=== PATIENT | male | born 1980 | race Caucasian/White ===

== ENCOUNTER 2016-05-26 21:35 | Emergency (ER) | payer BC, OTHER ==
[2016-05-26 21:59] VITALS: BP 146/100; PULSE 86; TEMP 98; BMI 27.8
--- NOTE | 2016-05-26 22:54 | PDOC ---
History of Present Illness - General Chief Complaint: Injury Stated Complaint: ANKLE AND KNEE INJURY Time Seen by Provider: 05/26/16 22:13 - History of Present Illness Initial Comments: 05/26/16 22:53 CHIEF COMPLAINT: Pain to left ankle, right knee, right thumb HISTORY OF PRESENT ILLNESS: 35-year-old male with no past medical history presents to ED with pain to left ankle, right knee, and right thumb, after trauma while playing basketball. Patient states that he was going up for a layup when a another player ran into him on the side. Patient states that when he landed he landed on the other player's foot and Twisted my ankle. "Patient states "I'm not really sure how pin but I guess he kept coming into me and I heard a pop in my right knee and was not able to walk after that. "Patient also states that he somehow has a lot of pain to his right thumb. No recent travel or sick contacts. PAST MEDICAL HISTORY: Denies past medical history FAMILY HISTORY: Denies SOCIAL HISTORY: Denies tobacco, alcohol, illicit drug use. SURGICAL HISTORY: Denies ALLERGIES: No known drug allergies REVIEW OF SYSTEMS General/Constitutional: Denies fever or chills. Denies weakness, weight change. HEENT: Denies change in vision. Denies ear pain or discharge. Denies sore throat. Cardiovascular: Denies chest pain or shortness of breath. Respiratory: Denies cough, wheezing, or hemoptysis. Gastrointestinal: Denies nausea, vomiting, diarrhea or constipation. Denies rectal bleeding. Genitourinary: Denies dysuria, frequency, or change in urination. Musculoskeletal: Pain to R knee, left ankle, right thumb. Skin and breasts: Denies rash or easy bruising. PHYSICAL EXAM General Appearance: Well-appearing, appropriately dressed. No apparent distress , no intoxication. HEENT: EOMI, PERRLA, normal ENT inspection, normal voice, TMs normal, pharynx normal. No conjunctival pallor. No photophobia, scleral icterus. Neck: Supple. Trachea midline. No tenderness, rigidity, carotid bruit, stridor , lymphadenopathy, or thyromegaly. Respiratory/Chest: Lungs CTAB. No shortness of breath, chest tenderness, respiratory distress, accessory muscle use. No crackles, rales, rhonchi, stridor , wheezing, dullness Cardiovascular: RRR. S1, S2. No JVD, murmur, bradycardia, tachycardia. Vascular Pulses: Dorsalis-Pedis (R): 2+, Dorsalis-Pedis (L): 2+ Gastrointestinal/Abdominal: Normal bowel sounds. Abdomen soft, non-distended. No tenderness or rebound tenderness. No organomegaly, pulsatile mass, guarding , hernia, hepatomegaly, splenomegaly. Lymphatic: No adenopathy, tenderness. Musculoskeletal/Extremities: Full ROM to left ankle. Limited ROM to R knee secondary to pain, patient unable to bear weight on knee. Pain to proximal aspect of R thumb on palpation, full ROM to thumb and all other figners. Normal inspection. FROM of all extremities, normal capillary refill. Pelvis Stable. No CVA tenderness. No tenderness to extremities, pedal edema, swelling, erythema or deformity. Integumentary: Appropriate color, dry, warm. No cyanosis, erythema, jaundice or rash Neurologic: [employer] II-XII intact. Fully oriented, alert. Appropriate mood/affect. Motor strength 5/5. No appreciable EOM palsy, facial droop or sensory deficit. Past History - Past Medical History Allergies/Adverse Reactions: Allergies Allergy/AdvReac Type Severity Reaction Status Date / Time No Known Allergies Allergy Verified 05/26/16 21:55 Home Medications: Ambulatory Orders NK [No Known Home Medication] 09/12/13 Anemia: No Asthma: No Cancer: No Cardiac Disorders: No CVA: No COPD: No CHF: No DVT: No Dementia: No Diabetes: No Dialysis: No GI Disorders: No Disorders: No HTN: No Hypercholesterolemia: No HIV: No Kidney Stones: No Liver Disease: No - Psycho/Social/Smoking Cessation Hx Anxiety: No Suicidal Ideation: No Smoking History: Never smoked Have you smoked in the past 12 months: No Number of Cigarettes Smoked Daily: 0 Hx Alcohol Use: No Drug/Substance Use Hx: No Substance Use Type: None Trauma Specific PMHX - Complaint Specific PMHX Back Injury: No Neck Injury: No *Physical Exam - Vital Signs Last Vital Signs Temp Pulse Resp BP Pulse Ox 98 F 86 18 146/100 98 05/26/16 21:56 05/26/16 21:56 05/26/16 21:56 05/26/16 21:56 05/26/16 21:56 ED Treatment Course - RADIOLOGY Radiology Studies Ordered: Category Date Time Status ANKLE-LEFT [RAD] Stat Radiology 05/26/16 22:17 Completed FINGER(S) RIGHT [RAD] Stat Radiology 05/26/16 22:21 Completed KNEE 3 POS-RIGHT [RAD] Stat Radiology 05/26/16 22:36 Taken Medical Decision Making - Medical Decision Making 05/26/16 22:59 35 yo M with no PMH presents to fast track with pain to left ankle, right knee, and right thumb s/p injury while playing basketball. -Right thumb x-ray -Right knee x-ray -Left ankle x-ray Right knee x-ray wet read negative for fracture or dislocation. Left ankle x-ray negative for fracture or dislocation. Read by Shayan Shrestha MD. Right thumb x-ray suspicious for nondisplaced fracture at distal shaft of first metacarpal bone with regional soft tissue swelling. Read by Shayan Shrestha MD. -Jan bandage wrap of right knee and left ankle -knee immobilizer to right knee -splint thumb for immoblization -Patient refused pain medication. Advised patient to follow up with orthopedics tomorrow for possible MRI of R knee. Patient verbalized understanding and agrees to plan. *DC/Admit/Observation/Transfer Diagnosis at time of Disposition: Finger fracture, right Left ankle sprain Qualifiers: Encounter type: subsequent encounter Involved ligament of ankle: unspecified ligament Qualified Code(s): S93.402D - Sprain of unspecified ligament of left ankle, subsequent encounter Right knee injury Qualifiers: Encounter type: initial encounter Qualified Code(s): S89.91XA - Unspecified injury of right lower leg, initial encounter - Discharge Dispostion Disposition: HOME Condition at time of disposition: Stable Admit: No - Referrals Referrals: Son Gan MD [Staff Physician] - - Patient Instructions Additional Instructions: Please follow up with orthopedics as discussed. If you experience severe pain, loss of sensation, numbness, tingling, or inability to move your leg or foot ( as if they feel frozen, not because it is painful to do so), or any new or worsening symptoms, please return to the ER immediately.
== END 2016-05-26 23:08 | disposition home or self-care (01) ==
LOC: JERFT 21:35
PROC: 2W3TX1Z Immobilization of Left Foot using Splint (ICD-10-PCS; principal; 2016-05-26)
PROC: 2W3SX1Z Immobilization of Right Foot using Splint (ICD-10-PCS; 2016-05-26)
DX: S62.244A Nondisplaced fracture of shaft of first metacarpal bone, right hand, initial encounter for closed fracture (principal); X58.XXXA Exposure to other specified factors, initial encounter; Y93.67 Activity, basketball; Y92.310 Basketball court as the place of occurrence of the external cause
CPT/HCPCS: 73140-TC-RT; 73562-TC-RT; 73610-TC-LT; 99281-25

== ENCOUNTER 2019-04-10 00:07 | Emergency (ER) | payer OTHER ==
--- NOTE | 2019-04-10 00:44 | PDOC ---
Medical Decision Making - Medical Decision Making 04/10/19 00:44 Patient seen by the advanced practice provider under my direct supervision. Ancillary testing reviewed as necessary. I agree with plan as outlined by the advanced practice provider. Discharge - Discharge Information Problems reviewed: Yes Clinical Impression/Diagnosis: Lower back pain Qualifiers: Chronicity: acute Back pain laterality: bilateral Sciatica presence: without sciatica Qualified Code(s): M54.5 - Low back pain Condition: Fair Disposition: HOME - Follow up/Referral - Patient Discharge Instructions Patient Printed Discharge Instructions: Low Back Pain Additional Instructions: Do light stretches Apply ice to the area for the first 24 hours. Then alternate with ice and heat after. Take ibuprofen every 6 hours as needed for pain. Follow-up with an orthopedic doctor if symptoms persist. A referral was given to you today. Return to the emergency room for any worsening symptoms. - Post Discharge Activity Work/Back to School Note: Back to Work
[2019-04-10 01:00] VITALS: BP 125/86; PULSE 74; TEMP 98.1
--- NOTE | 2019-04-10 01:02 | PDOC ---
History of Present Illness - General Chief Complaint: Back Pain Stated Complaint: LOWER BACK PAIN Time Seen by Provider: 04/10/19 00:41 History Source: Patient - History of Present Illness Initial Comments: 04/10/19 00:57 38 year old [employer] BIBA for lower back pain after carrying a heavy Hose with water while at work. patient reports that pain is better now. no midline pain. no numbness or tingling to legs. no incontinence of bowel and urine Past History - Past Medical History Allergies/Adverse Reactions: Allergies Allergy/AdvReac Type Severity Reaction Status Date / Time No Known Allergies Allergy Verified 04/10/19 01:01 Home Medications: Ambulatory Orders NK [No Known Home Medication] 09/12/13 Anemia: No Asthma: No Cancer: No Cardiac Disorders: No CVA: No COPD: No CHF: No DVT: No Dementia: No Diabetes: No Dialysis: No GI Disorders: No Disorders: No HTN: No Hypercholesterolemia: No Kidney Stones: No Liver Disease: No - Psycho Social/Smoking Cessation Hx Smoking History: Never smoked Have you smoked in the past 12 months: No Number of Cigarettes Smoked Daily: 0 Hx Alcohol Use: No Drug/Substance Use Hx: No Substance Use Type: None Trauma Specific PMHX - Complaint Specific PMHX Back Injury: No Neck Injury: No *Physical Exam - Physical Exam General Appearance: Yes: Appropriately Dressed Musculoskeletal: positive: Other (lumbar paraspinal area tenderness ). negative : Vertebral Tenderness Extremity: positive: Normal Capillary Refill, Normal Inspection, Normal Range of Motion Integumentary: positive: Normal Color, Dry, Warm Neurologic: positive: Fully Oriented, Alert, Normal Mood/Affect, Normal Response , Motor Strength 5/5 ED Progress Note - Progress Note Progress Note: A: low back pain P: offered pain medication. patient refused. Discharge - Discharge Information Problems reviewed: Yes Clinical Impression/Diagnosis: Lower back pain Qualifiers: Chronicity: acute Back pain laterality: bilateral Sciatica presence: without sciatica Qualified Code(s): M54.5 - Low back pain Condition: Fair Disposition: HOME - Follow up/Referral - Patient Discharge Instructions Patient Printed Discharge Instructions: Low Back Pain Additional Instructions: Do light stretches Apply ice to the area for the first 24 hours. Then alternate with ice and heat after. Take ibuprofen every 6 hours as needed for pain. Follow-up with an orthopedic doctor if symptoms persist. A referral was given to you today. Return to the emergency room for any worsening symptoms. - Post Discharge Activity Work/Back to School Note: Back to Work
== END 2019-04-10 01:08 | disposition home or self-care (01) ==
LOC: JER 00:07
DX: M54.5 Low back pain (principal); X58.XXXA Exposure to other specified factors, initial encounter; Y93.89 Activity, other specified; Y92.89 Other specified places as the place of occurrence of the external cause; Y99.0 Civilian activity done for income or pay
CPT/HCPCS: 99281-25

== ENCOUNTER 2021-02-15 16:20 | Emergency (ER) | payer OTHER ==
[2021-02-15 16:34] VITALS: BP 117/88; PULSE 105; TEMP 97.9; BMI 27.5
== END 2021-02-15 18:35 | disposition home or self-care (01) ==
LOC: JER 16:20 → JERFT 16:20
DX: S69.91XA Unspecified injury of right wrist, hand and finger(s), initial encounter (principal); W01.0XXA Fall on same level from slipping, tripping and stumbling without subsequent striking against object, initial encounter; X50.0XXA Overexertion from strenuous movement or load, initial encounter
CPT/HCPCS: 73130-TC-RT-FY; 73140-TC-RT-FY; 99284-25

== ENCOUNTER 2023-02-18 13:40 | Emergency (ER) | payer OTHER ==
[2023-02-18 13:56] VITALS: BP 120/75; PULSE 85; RESP 18; TEMP 98; BMI 28.5
== END 2023-02-18 15:44 | disposition home or self-care (01) ==
LOC: JER 13:40
DX: S46.211A Strain of muscle, fascia and tendon of other parts of biceps, right arm, initial encounter (principal); M79.601 Pain in right arm; X50.0XXA Overexertion from strenuous movement or load, initial encounter; Y99.0 Civilian activity done for income or pay
CPT/HCPCS: 73030-TC-RT-FY; 99283-25

== ENCOUNTER 2023-04-28 06:16 | Day surgery (SDC) | payer OTHER ==
[2023-04-24 14:23] VITALS: BMI 28.5
[2023-04-28] MEDS ORDERED: EPINEPHrine 1:1,000 1,000 MCG/ML ML ONE (07:22)
[2023-04-28] MEDS ORDERED: MIDAZOLAM HCL 2 MG/2 ML SINGLE DOSE VIAL ONE ×2 (07:28→08:20)
[2023-04-28] MEDS ORDERED: DEXAMETHASONE SOD PHOSPHATE/PF 10 MG/ML SDV ONE (07:28)
[2023-04-28] MEDS ORDERED: ROPIVACAINE HCL 0.5% 30ML VIAL ONE (07:28)
[2023-04-28] MEDS ORDERED: LIDOCAINE HCL 2% (20ML MULTI-DOSE VIAL) ONE (07:39)
[2023-04-28] MEDS ORDERED: LIDOCAINE HCL 1%, 10 MG/ML (20ML VIAL) ONE (07:39)
[2023-04-28] MEDS ORDERED: SUCCINYLCHOLINE CHLORIDE 200 MG/10 ML SYRINGE ONE (07:54)
[2023-04-28] MEDS ORDERED: PROPOFOL 40 ML ONE (07:54)
[2023-04-28] MEDS ORDERED: ceFAZolin SODIUM 1 GM VIAL ONE (08:12)
[2023-04-28] MEDS ORDERED: DEXAMETHASONE SOD PHOSPHATE 4 MG/1 ML VIAL ONE (08:12)
[2023-04-28] MEDS ORDERED: ONDANSETRON 4 MG/2 ML VIAL ONE (08:12)
[2023-04-28] MEDS ORDERED: LIDOCAINE 1%/EPI 1:100000 (50 ML MULTI DOSE VIAL) ONE (08:18)
[2023-04-28] MEDS ORDERED: ONDANSETRON 4 MG/2 ML VIAL IVPUSH PRN (09:59)
[2023-04-28] MEDS ORDERED: oxyCODONE HCL 5 MG TABLET PO PRN (09:59)
[2023-04-28] MEDS ORDERED: LACTATED RINGERS SOLUTION 1,000 ML IV SCH (10:00)
[2023-04-28 11:00] VITALS: PULSE 63; RESP 16; TEMP 97.9
[2023-04-28 11:16] VITALS: BP 112/75
== END 2023-04-28 12:10 | disposition home or self-care (01) ==
LOC: FASU 06:16
PROVIDERS: ATTEND Orthopaedic Surgery
PROC: 0RNJ4ZZ Release Right Shoulder Joint, Percutaneous Endoscopic Approach (ICD-10-PCS; principal; 2023-04-28 08:35)
PROC: 0XJ20ZZ Inspection of Right Shoulder Region, Open Approach (ICD-10-PCS; 2023-04-28 08:35)
DX: S46.011D Strain of muscle(s) and tendon(s) of the rotator cuff of right shoulder, subsequent encounter (principal); M75.21 Bicipital tendinitis, right shoulder; M75.51 Bursitis of right shoulder; M65.811 Other synovitis and tenosynovitis, right shoulder; S43.431D Superior glenoid labrum lesion of right shoulder, subsequent encounter; M75.01 Adhesive capsulitis of right shoulder; X58.XXXD Exposure to other specified factors, subsequent encounter
CPT/HCPCS: C1713